=== PATIENT | male | born 1980 | race Caucasian/White ===

== ENCOUNTER 2016-12-07 22:33 | Emergency (ER) | payer MEDICAID ==
[~2016-12-07] VITALS: Ht 170.2 cm; Wt 86.0 kg
[2016-12-08] MEDS ORDERED: OxyCODONE HCL/ACETAMINOPHEN 5-325 MG TABLET PO ONE (01:45)
[2016-12-08 02:24] VITALS: BP 141/82
== END 2016-12-08 02:33 | disposition home or self-care (01) ==
LOC: EMS 22:34
DX: K04.7 Periapical abscess without sinus (principal); K02.9 Dental caries, unspecified; F17.210 Nicotine dependence, cigarettes, uncomplicated; F19.90 Other psychoactive substance use, unspecified, uncomplicated
CPT/HCPCS: 99283; 99406